=== PATIENT | female | born 1960 | race Caucasian/White ===

== ENCOUNTER 2019-12-28 14:45 | Emergency (ER) | payer BC ==
[~2019-12-28] VITALS: Ht 160 cm; Wt 100.0 kg
--- NOTE | 2019-12-28 16:02 | REP ---
INDICATION: HTN. COMPARISON: None. TECHNIQUE: AP upright portable FINDINGS: Of the lungs are well inflated. There infiltrates in the lateral the left base and infrahilar right base suggesting acute pneumonitis. I do not see pleural effusion. The mid upper lung zones are clear there is left atrial enlargement and the heart is left ventricular configuration. No blossom edema. The aorta is without gross aneurysm. Airway midline. No widening of the mediastinum. Bones without acute finding but some degenerative changes in the thoracic region. No free air. IMPRESSION: Bilateral lower lung zone infiltrates laterally on the left, infrahilar on the right. No pleural effusion. No other significant finding in the lungs. Some cardiomegaly with left atrial and left ventricular enlargement. No blossom edema. <Electronically signed by Saurabh Drake > 12/28/19 [id number]
[2019-12-28 17:46] LABS: BLOOD UREA NITROGEN 12 MG/DL (7-18); CREATININE FOR GFR 0.89 MG/DL (0.55-1.30); GLUCOSE, FASTING 136 MG/DL (70-100)
[2019-12-28 17:47] LABS: CALCIUM LEVEL 9.2 MG/DL (8.8-10.2); CARBON DIOXIDE LEVEL 25 MEQ/L (21-32); CHLORIDE LEVEL 107 MEQ/L (98-107); CK-MB VALUE MASS 1.4 NG/ML (<3.6); CPK CREATINE PHOSPHOKINASE 125 U/L (26-192); GLOMERULAR FILTRATION RATE > 60.0 (>45); MB/CK RELATIVE INDEX 1.12 (< OR =4); POTASSIUM SERUM 4.8 MEQ/L (3.5-5.1); SODIUM LEVEL 140 MEQ/L (136-145); THYROID STIMULATING HORMONE 0.991 uIU/ML (0.358-3.740); TROPONIN I < 0.02 NG/ML (< 0.10)
[2019-12-28] MEDS ORDERED: CHLORTHALIDONE 12.5MG PER 1/2 TABLET PO ONE (18:30)
[2019-12-28] MEDS ORDERED: VALSARTAN 80 MG TAB (DIOVAN) PO ONE (18:30)
[2019-12-28 19:17] LABS: BASO # 0.1 10^3/uL (0.0-0.2); BASO % 0.9 % (0.0-1.0); EOS # 0.1 10^3/uL (0.0-0.5); EOS % 1.2 % (0.0-3.0); HEMATOCRIT 45.3 % (36.0-47.0); HEMOGLOBIN 15.1 g/dl (12.0-15.5); LYMPH # 0.9 10^3/uL (1.5-5.0); LYMPH % 12.7 % (24.0-44.0); MEAN CORPUSCULAR HGB CONC 33.3 g/dl (32.0-36.5); MONO # 0.5 10^3/uL (0.0-0.8); MONO % 7.7 % (0.0-5.0); NEUTROPHILS # 5.2 10^3/uL (1.5-8.5); NEUTROPHILS % 77.2 % (36.0-66.0); PLATELET COUNT, AUTOMATED 326 10^3/uL (150-450); RED BLOOD COUNT 5.39 10^6/uL (4.00-5.40); WHITE BLOOD COUNT 6.8 10^3/uL (4.0-10.0)
[2019-12-28] MEDS ORDERED: hydrALAZINE 20MG/ML 1ML VIAL (J0360 PER 20MG) IV ONE (20:45)
[2019-12-28 20:50] VITALS: BP 218/100
[2019-12-28] MEDS ORDERED: VALS1TAB68 PO (21:30)
[2019-12-28] MEDS ORDERED: CHLO125TA PO (21:30)
[2019-12-28 21:45] VITALS: BP 215/80
--- NOTE | 2019-12-29 01:03 | ECGEPIP ---
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
--- NOTE | 2019-12-30 09:56 | ED PDOC ---
Post-Departure Follow-Up rosemary crowe faxed formal report of cxr for fu aleg Laurita Ramires MD Dec 30, 2019 09:56
== END 2019-12-28 22:13 | disposition home or self-care (01) ==
LOC: EDBD 14:45 → M ED 14:45
DX: I10 Essential (primary) hypertension (principal); Z88.0 Allergy status to penicillin; Z88.2 Allergy status to sulfonamides
CPT/HCPCS: 36415; 71045; 80048; 82550; 82553; 84443; 84484; 85025; 93005; 96374; 99285; J0360

== ENCOUNTER → 2020-01-05 | Outpatient (CLI) | payer BC ==
[~2020-01-05] MED LIST: ATEN25TA; CHLO125TA PO; VALS1TAB68 PO
--- NOTE | 2020-01-08 08:52 | SLEEPHOME ---
DATE: 01/05/2020 ORDERED BY: Christophe Mann MD Diagnostic home sleep testing was performed due to concern for the obstructive sleep apnea syndrome. For testing, a nocturnal T3 respiratory monitoring device was used. Continuous record was made of pulse, oxygen saturation, air flow, chest and abdominal strain, and body position. Nine hours and 59 minutes of data were reviewed. There were 4 hours and 20 minutes marked as time in bed. During the interval marked time in bed, there were 41 respiratory events identified of 10 seconds in duration or greater for a respiratory event index of 9.4. The events were primarily obstructive. Baseline pulse rate 72. Pulse rate ranged 62 to 91. Baseline saturation was 94%. Saturations fell to 85%. Testing was performed in both the supine and nonsupine positions. IMPRESSION: Abnormal home sleep testing with repetitive respiratory events and oxygen desaturations to 85% with a respiratory event index of 9.4 is consistent with the obstructive sleep apnea syndrome. RECOMMENDATION: The patient should be encouraged to undergo a formal sleep evaluation. [facility]
== END ==
LOC: M SLEEP HO 11:11
PROVIDERS: ATTEND Internal Medicine Cardiovascular Disease
DX: R06.83 Snoring (principal)

== ENCOUNTER 2020-01-08 10:02 | Emergency (ER) | payer BC ==
[~2020-01-08] VITALS: Ht 160 cm; Wt 102.3 kg
[~2020-01-08 10:02] MED LIST changes: -ATEN25TA
[2020-01-08 11:08] LABS: BASO # 0.1 10^3/uL (0.0-0.2); EOS # 0.1 10^3/uL (0.0-0.5); EOS % 1.7 % (0.0-3.0); HEMATOCRIT 45.8 % (36.0-47.0); HEMOGLOBIN 14.9 g/dl (12.0-15.5); LYMPH # 0.8 10^3/uL (1.5-5.0); LYMPH % 9.3 % (24.0-44.0); MEAN CORPUSCULAR HEMOGLOBIN 27.2 pg (27.0-33.0); MEAN CORPUSCULAR HGB CONC 32.5 g/dl (32.0-36.5); MEAN CORPUSCULAR VOLUME 83.7 fl (80.0-96.0); MONO # 0.7 10^3/uL (0.0-0.8); MONO % 8.6 % (0.0-5.0); NEUTROPHILS # 6.6 10^3/uL (1.5-8.5); PLATELET COUNT, AUTOMATED 354 10^3/uL (150-450); RED BLOOD COUNT 5.47 10^6/uL (4.00-5.40); WHITE BLOOD COUNT 8.3 10^3/uL (4.0-10.0)
--- NOTE | 2020-01-08 11:11 | REPVR ---
PROCEDURE INFORMATION: Exam: CT Head Without Contrast Exam date and time: 01/08/2020 10:39 AM Age: 59 years old Clinical indication: Other: Neuro, dizzy since Saturday01/06/2020 night and is hypertensive. TECHNIQUE: Imaging protocol: Computed tomography of the head without contrast. Radiation optimization: All CT scans at this facility use at least one of these dose optimization techniques: automated exposure control; mA and/or kV adjustment per patient size (includes targeted exams where dose is matched to clinical indication); or iterative reconstruction. COMPARISON: No relevant prior studies available. FINDINGS: Brain: There is decreased attenuation and loss nielsen-white differentiation in the left occipital lobe and involving the left side of splenium of corpus callosum. This is well-defined and is suspected to be an acute infarct given other symptoms which can be referable to posterior circulation of dizziness since Saturday. This could be further evaluated with MR. No definite cerebellar infarct. 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 There is no acute hemorrhage. There is no midline shift. There are no extra-axial fluid collections. Cerebral ventricles: No ventriculomegaly. Bones/joints: No acute fracture. Paranasal sinuses: Visualized sinuses are unremarkable. No fluid levels. Mastoid air cells: Mastoid air cells and middle ear cavities are well developed and well aerated. Soft tissues: Unremarkable as visualized. IMPRESSION: Left posterior cerebral artery distribution infarct may be acute given appearance and patient's reported symptom duration. This could be further evaluated with MRI. No acute hemorrhage. Electronically signed by: Miranda Bills On 01/08/2020 11:10:32 AM
[2020-01-08] MEDS ORDERED: ATEN25TA (11:30)
[2020-01-08 11:37] LABS: CK-MB VALUE MASS < 1.0 NG/ML (<3.6); CPK CREATINE PHOSPHOKINASE 64 U/L (26-192); MB/CK RELATIVE INDEX 1.56 (< OR =4); TROPONIN I < 0.02 NG/ML (< 0.10)
--- NOTE | 2020-01-08 11:41 | REP ---
INDICATION: CHEST PAIN. COMPARISON: 12/28/2019. TECHNIQUE: SINGLE PORTABLE AP VIEW OF THE CHEST WAS PERFORMED. FINDINGS: Previously noted bibasilar parenchymal opacities have improved with what appears to be mild residual fibro atelectatic change. Heart is not significantly enlarged. The mediastinal silhouette is unchanged. IMPRESSION: Mild bibasilar fibro atelectatic change. <Electronically signed by Jerry Wilson > 01/08/20 [id number]
[2020-01-08 11:48] LABS: CALCIUM LEVEL 9.2 MG/DL (8.8-10.2); CREATININE FOR GFR 1.11 MG/DL (0.55-1.30); GLOMERULAR FILTRATION RATE 53.2 (>45); THYROID STIMULATING HORMONE 1.37 uIU/ML (0.358-3.740)
[2020-01-08] MEDS ORDERED: ASPIRIN 325 MG TAB PO ONE (12:30)
[2020-01-08] MEDS ORDERED: atenoloL 25 MG TAB PO ONE ×2 (12:30→20:30)
[2020-01-08] MEDS ORDERED: hydrALAZINE 20MG/ML 1ML VIAL (J0360 PER 20MG) IV ONE (18:00)
[2020-01-08] MEDS ORDERED: hydrALAZINE 20MG/ML 1ML VIAL (J0360 PER 20MG) IV STA (18:29)
--- NOTE | 2020-01-08 19:56 | REPVR ---
PROCEDURE INFORMATION: Exam: MR Head Without Contrast Exam date and time: 01/08/2020 7:48 PM Age: 59 years old Clinical indication: Dizziness TECHNIQUE: Imaging protocol: MR of the head without contrast. COMPARISON: CT Head without contrast 2020-01-08 10:31 FINDINGS: Brain: Acute left ICE SKATING INSTRUCTOR territory infarcts including in the splenium of the corpus callosum, and left occipital lobe. T2 signal hyperintensity corresponding to the regions of acute infarction. No midline shift, mass, fluid collection, or evidence of acute hemorrhage. Cerebral ventricles: Normal. No ventriculomegaly. Bones/joints: Unremarkable. Paranasal sinuses: Small left maxillary sinus mucous retention cyst. Mastoid air cells: Normal as visualized. No mastoid effusion. Orbits: Unremarkable. Soft tissues: Unremarkable. IMPRESSION: Acute left ICE SKATING INSTRUCTOR territory infarcts including in the splenium of the corpus callosum, and left occipital lobe. Electronically signed by: Christophe Santillan On 01/08/2020 19:56:03 PM
--- NOTE | 2020-01-08 20:09 | REPVR ---
PROCEDURE INFORMATION: Exam: MR Angiogram Head Without Contrast, Arteries Exam date and time: 01/08/2020 7:48 PM Age: 59 years old Clinical indication: Dizziness and giddiness TECHNIQUE: Imaging protocol: MR angiogram head without contrast. Exam focused on the arteries. COMPARISON: CT Head without contrast 2020-01-08 10:31 FINDINGS: ANTERIOR CIRCULATION: Right internal carotid artery: Question tiny right communicating ICA segment 1 to 2 mm aneurysm versus infundibulum. Mild right ICA atherosclerosis and narrowing. Right middle cerebral artery: Right MCA M3 branch moderate severe stenoses. Right anterior cerebral artery: No occlusion or significant stenosis. No aneurysm. Left internal carotid artery: Left communicating segment ICA 3 x 2 mm possible aneurysm projecting inferior posteriorly versus posterior communicating artery infundibulum. Mild moderate left ICA atherosclerotic disease and narrowing. Left middle cerebral artery: Posterior left MCA M2 branch demonstrates moderate to severe focal stenosis. Left anterior cerebral artery: No occlusion or significant stenosis. No aneurysm. POSTERIOR CIRCULATION: Right vertebral artery: No occlusion or significant stenosis. No aneurysm. Left vertebral artery: Occluded left vertebral artery V4 segment with some minimal spur interspersed flow related signal. Basilar artery: No occlusion or significant stenosis. No aneurysm. Right posterior cerebral artery: Severely stenotic proximal right JIG BUILDER P2 segment with a tiny flow gap. Left posterior cerebral artery: Occluded left JIG BUILDER at the P1 P2 segment with irregularity of the left JIG BUILDER P2 1 segment. IMPRESSION: 1. Occluded left vertebral artery V4 segment with some minimal spur interspersed flow related signal. 2. Occluded left JIG BUILDER at the P1 P2 segment with irregularity of the left JIG BUILDER P2 1 segment. 3. Severely stenotic proximal right JIG BUILDER P2 segment with a tiny flow gap. 4. Question tiny right communicating ICA segment 1 to 2 mm aneurysm versus infundibulum. 5. Left communicating segment ICA 3 x 2 mm possible aneurysm projecting inferior posteriorly versus posterior communicating artery infundibulum. 6. Posterior left MCA M2 branch demonstrates moderate to severe focal stenosis. 7. Right MCA M3 branch moderate severe stenoses. Electronically signed by: Christophe Santillan On 01/08/2020 20:08:53 PM
[2020-01-08 20:51] VITALS: BP 191/86
--- NOTE | 2020-01-08 21:40 | ECGEPIP ---
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
[2020-01-08 22:16] VITALS: BP 131/58
--- NOTE | 2020-01-11 15:39 | ED PDOC ---
Post-Departure Follow-Up [facility] stroke scale was 0 with vague dizziness that did not change during visit. ASA 325 [address] PO given after CT scan results with concerns for stroke. ERI GARNER. [facility] Jan 11, 2020 15:39
== END 2020-01-08 22:30 | disposition short-term general hospital (02) ==
LOC: M ED 10:02
DX: I63.532 Cerebral infarction due to unspecified occlusion or stenosis of left posterior cerebral artery (principal); I10 Essential (primary) hypertension; Z88.0 Allergy status to penicillin; Z88.2 Allergy status to sulfonamides
CPT/HCPCS: 36415; 70450; 70544; 70551; 71045; 80048; 82550; 82553; 84443; 84484; 85025; 93005; 93041; 94760; 96374; 99285; J0360; U0002